=== PATIENT | male | born 1935 | race Caucasian/White ===

== ENCOUNTER 2019-05-23 08:00 | Outpatient (CLI) | payer MEDICARE ==
--- NOTE | 2019-05-23 11:11 | NM ---
EXAM: Nuclear Medicine Cardiac SPECT with EF and wall motion: HISTORY: Chest pain Protocol: Exam was performed using Lexiscan protocol. The patient is injected with30.1 millicuries of technetium 99m sestamibi intravenously for stress ivan ges. The patient is injected with10.2 millicuries of technetium 99 sestamibi intravenously for resting ivan ges. Multiple SPECT images are performed in the short axis, vertical long axis, and horizontal long axis. FINDINGS: Abnormal decreased activity in the inferior wall on stress and rest images evidence for infarct or sc ar. No scan evidence for ischemia. 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 No scan evidence for ischemia.
[2019-05-23] MEDS ORDERED: Regadenoson 0.4 MG/5 ML SYRINGE ONE (14:50)
== END 2019-05-23 08:01 | disposition home or self-care (01) ==
LOC: NM 08:00
PROVIDERS: ATTEND Internal Medicine
DX: R07.9 Chest pain, unspecified (principal)
CPT/HCPCS: 78452; 93017; A9500

== ENCOUNTER 2020-08-09 17:01 | Inpatient (IN) | payer MEDICARE ==
--- NOTE | 2020-08-09 18:01 | RAD ---
PORTABLE CHEST: 08/09/20 HISTORY: COVID positive. Low O2 sat. Heart size is within normal limits. There are atherosclerotic changes of the aorta. The lungs show so me mild chronic change without focal infiltrates. IMPRESSION: No active intrathoracic disease. POS: OFF
[2020-08-09 18:11] LABS: #Lymphocytes 0.6 thou/uL (1.20-3.40); #Monocytes 0.4 thou/uL (0.11-0.59); #Neutrophils 2.2 thou/uL (1.40-6.50); %Eosinophils 0.8 % (0.0-10.0); %Lymphocytes 17.7 % (21.0-51.0); %Neutrophils 68.5 % (42.0-75.0); Hemoglobin 13.9 g/dL (14.0-18.0); Mean Corpuscular HGB CONC 34.2 g/dL (32.0-36.0); Mean Corpuscular Hemoglobin 31.9 pg (27.0-31.0); Mean Corpuscular Volume 93.3 fL (78.0-98.0); Mean Platelet Volume 8.5 fL (7.4-10.4); Platelet Count 113 thou/uL (130-400); Platelet Morphology Comment Appears Decreased; RBC Distribution Width 11.9 % (11.5-14.5); RBC Morphology Normal; Red Blood Cell (RBC) Count 4.35 mill/uL (4.70-6.10); White Blood Cell (WBC) Count 3.1 thou/uL (4.8-10.8)
[2020-08-09 18:16] LABS: ALT (SGPT) 31 U/L (8-55); AST (SGOT) 27 U/L (5-34); Alkaline Phosphatase 89 U/L (40-110); Anion Gap 14 mmol/L (10-20); BUN (Urea Nitrogen) 16 mg/dL (8.4-25.7); Bilirubin, Total 0.6 mg/dL (0.2-1.2); Calc. Creatinine Clearance 0 mL/min (70-130); Calcium 8.7 mg/dL (7.8-10.44); Carbon Dioxide 27 mmol/L (23-31); Chloride 98 mmol/L (98-107); Globulin 2.7 g/dL (2.4-3.5); Glucose 280 mg/dL (83-110); Potassium 4.3 mmol/L (3.5-5.1); Protein, Total 6.7 g/dL (5.8-8.1); Sodium 135 mmol/L (136-145)
[2020-08-09 21:34] LABS: #Lymphocytes 0.5 thou/uL (1.20-3.40); #Monocytes 0.4 thou/uL (0.11-0.59); #Neutrophils 1.9 thou/uL (1.40-6.50); %Eosinophils 1.2 % (0.0-10.0); %Lymphocytes 17.6 % (21.0-51.0); %Monocytes 13.1 % (0.0-10.0); %Neutrophils 68.1 % (42.0-75.0); Mean Corpuscular HGB CONC 34.1 g/dL (32.0-36.0); Mean Corpuscular Hemoglobin 31.8 pg (27.0-31.0); Mean Corpuscular Volume 93.3 fL (78.0-98.0); Mean Platelet Volume 8.5 fL (7.4-10.4); Platelet Count 107 thou/uL (130-400); RBC Distribution Width 11.8 % (11.5-14.5); White Blood Cell (WBC) Count 2.8 thou/uL (4.8-10.8)
--- NOTE | 2020-08-09 21:42 | PDOC.HHP ---
Hospitalist HPI - History of Present Illness Weakness History of Present Illness: This is an 85-year-old male patient with a history of BPH, dementia, Gullian Rosales syndrome with urinary incontinence who was brought in by his on account of generalized case and cough about a week's duration. Patient and his went in to have a Covid test today and he tested positive. His notes for the past week he has been generally weak and unable to move around like he used to. Also coughing however nonproductive. With a positive Covid test and associated symptoms decided to bring him to the ED by EMS for further evaluation. Of note he is hard of caregiver since his diagnosis of care in [place] who re cently became sick with Covid. At presentation Vitals 105/59, pulse 72, respiratory 20, temperature 100, saturation 98% on room air. Labs showed WBC 3.1, hemoglobin 13.9, platelets 113, mild hyponatremia of 135. Glucose was elevated at 280. Attempts were made by ED physician to have him transition to rehab at [facility] however was not successful. Given his general weakness and his not able to take care of him, and also that they do not have any home health support, decision was made to admit him and prepare for transition to rehab if he does not deteriorate any further Hospitalist ROS - Review of Systems Constitutional: reports: fever, weakness, malaise. denies: chills, sweats Respiratory: reports: cough, dry, SOB with excertion. denies: shortness of breath, hemoptysis Gastrointestinal: denies: nausea, vomiting, abdominal pain, diarrhea Genitourinary: denies: dysuria, frequency, incontinence Musculoskeletal: denies: neck pain, shoulder pain, arm pain, back pain Neurological: reports: weakness (Lower limb). denies: numbness, incoordination, change in speech, confusion All other systems reviewed; all pertinent +/- noted in HPI/Subj - Medication Medications: Medications: Currently refer to ambulatory's. Allergies: HMG coinhibitor-statin Hospitalist History - Past Medical History Other Medical History: Dear Rodriguez syndrome, GERD - Past Surgical History Past Surgical History: reports: no pertinent history - Family History Family History: reports: no pertinent history - Social History Smoking Status: Never smoker Alcohol: reports: Occassional Drugs: reports: none Living Situation: With Family - Exam General Appearance: awake alert General - other findings: In no acute distress. Eye: PERRL, anicteric sclera ENT: normocephalic atraumatic Heart: RRR, no murmur, no gallops, no rubs Respiratory: CTAB, no wheezes, no rales, no ronchi Gastrointestinal: soft, non-tender, non-distended (However appears full.), normal bowel sounds Neurological: cranial nerve grossly intact Psychiatric: normal affect, normal behavior, A&O x 3 Hospitalist Results - Labs Result Diagrams: 08/09/20 21:17 08/09/20 21:17 Lab results: WBC 2.8 thou/uL (4.8-10.8) L 08/09/20 21:17 Hgb 13.0 g/dL (14.0-18.0) L 08/09/20 21:17 Hct 38.3 % (42.0-52.0) L 08/09/20 21:17 MCV 93.3 fL (78.0-98.0) 08/09/20 21:17 Plt Count 107 thou/uL (130-400) L 08/09/20 21:17 Neutrophils % 68.1 % (42.0-75.0) 08/09/20 21:17 Sodium 135 mmol/L (136-145) L 08/09/20 17:14 Potassium 4.3 mmol/L (3.5-5.1) 08/09/20 17:14 Chloride 98 mmol/L (98-107) 08/09/20 17:14 Carbon Dioxide 27 mmol/L (23-31) 08/09/20 17:14 BUN 16 mg/dL (8.4-25.7) 08/09/20 17:14 Creatinine 1.05 mg/dL (0.7-1.3) 08/09/20 17:14 Glucose 280 mg/dL (83-110) H 08/09/20 17:14 Calcium 8.7 mg/dL (7.8-10.44) 08/09/20 17:14 Total Bilirubin 0.6 mg/dL (0.2-1.2) 08/09/20 17:14 AST 27 U/L (5-34) 08/09/20 17:14 ALT 31 U/L (8-55) 08/09/20 17:14 Alkaline Phosphatase 89 U/L (40-110) 08/09/20 17:14 Troponin I Less than 0.010 ng/mL (< 0.028) 08/09/20 17:14 B-Natriuretic Peptide 44.1 pg/mL (0-100) 08/09/20 17:14 Serum Total Protein 6.7 g/dL (5.8-8.1) 08/09/20 17:14 Albumin 4.0 g/dL (3.4-4.8) 08/09/20 17:14 Hospitalist H&P A/P - Plan Plan: This is an 85-year-old male patient with a history of PMR syndrome currently incontinent presents with general weakness and cough for a week. Tested positive for Covid today with a mild pancytopenia. Generalized weakness Likely secondary to COVID-19 infection PT and case management Continue monitoring. COVID-19 infection Hold steroids and remdesivir Start zinc and vitamins C/D D-dimer, ferritin, CRP Monitor -Pancytopenia Mild thrombocytopenia Mild anemia Mild leukopenia We will monitor Hyperglycemia No history of diabetes A1c in a.m. VT prophylaxisLovenox
[2020-08-09 21:52] LABS: Anion Gap 12 mmol/L (10-20); BUN (Urea Nitrogen) 14 mg/dL (8.4-25.7); Calc. Creatinine Clearance 0 mL/min (70-130); Calcium 8.1 mg/dL (7.8-10.44); Carbon Dioxide 26 mmol/L (23-31); Chloride 99 mmol/L (98-107); Glucose 285 mg/dL (83-110); Potassium 3.9 mmol/L (3.5-5.1); Sodium 133 mmol/L (136-145)
[2020-08-09 23:17] VITALS: BMI 27.3
[2020-08-10 06:39] LABS: Hemoglobin A1c 8.8 % (4.0-6.0)
[2020-08-10 06:44] LABS: Hemoglobin 13.3 g/dL (14.0-18.0); Mean Corpuscular HGB CONC 33.3 g/dL (32.0-36.0); Mean Corpuscular Hemoglobin 31.3 pg (27.0-31.0); Mean Corpuscular Volume 94.2 fL (78.0-98.0); Mean Platelet Volume 8.6 fL (7.4-10.4); Platelet Count 101 thou/uL (130-400); RBC Distribution Width 11.9 % (11.5-14.5); Red Blood Cell (RBC) Count 4.23 mill/uL (4.70-6.10); White Blood Cell (WBC) Count 2.1 thou/uL (4.8-10.8)
[2020-08-10 06:55] LABS: Anion Gap 9 mmol/L (10-20); BUN (Urea Nitrogen) 14 mg/dL (8.4-25.7); Calc. Creatinine Clearance 98 mL/min (70-130); Calcium 8.3 mg/dL (7.8-10.44); Carbon Dioxide 30 mmol/L (23-31); Chloride 100 mmol/L (98-107); Glucose 213 mg/dL (83-110); Potassium 3.8 mmol/L (3.5-5.1); Sodium 135 mmol/L (136-145)
[2020-08-10] MEDS: Enoxaparin Sodium 40 MG/0.4 ML SYRINGE SC SCH (07:49)
[2020-08-10] MEDS: Cholecalciferol (Vitamin D3) 400 UNITS TAB PO SCH (07:49)
[2020-08-10] MEDS: Ascorbic Acid 500 mg Chewable Tablet PO SCH (07:49)
[2020-08-10] MEDS: Zinc Sulfate 220 MG CAP PO SCH (07:49)
[2020-08-10 08:02] LABS: Band 10 % (5-11); Eosinophils 1 % (0-10); Lymphocytes 28 % (21-51); MDiff Complete? YES; Monocytes 16 % (0-10); Neutrophil 43 % (42-75); Platelet Morphology Comment Appears Decreased; Polychromasia SLIGHT = 2-3 cells (100X) (0-2/hpf); Reactive Lymphocytes 2 % (0-10)
--- NOTE | 2020-08-10 09:32 | PDOC.HOSPP ---
- Subjective Encounter Date: 08/10/20 Encounter Time: 11:00 - Objective Vital Signs & Weight: Vital Signs (12 hours) Temp Pulse Resp BP Pulse Ox 08/10/20 07:27 99.8 F H 72 18 145/71 H 91 L 08/10/20 04:00 97.4 F L 55 L 18 165/82 H 92 L 08/09/20 23:16 95 08/09/20 22:55 99.0 F 56 L 20 149/76 H 95 Weight Weight 213 lb Result Diagrams: 08/10/20 06:12 08/10/20 06:12 Hospitalist ROS - Medication Medications: Active Medications Generic Name Dose Route Start Last Admin Trade Name Freq PRN Reason Stop Dose Admin Ascorbic Acid 1,000 mg 08/10/20 09:00 08/10/20 07:49 Ascorbic Acid 500 Mg Chewable Tablet PO 1,000 mg DAILY FABI Administration Cholecalciferol 400 units 08/10/20 09:00 08/10/20 07:49 Cholecalciferol (Vitamin D3) 400 Units Tab PO 400 units DAILY FABI Administration Enoxaparin Sodium 40 mg 08/10/20 09:00 08/10/20 07:49 Enoxaparin Sodium 40 Mg/0.4 Ml Syringe SC 40 mg 0900 FABI Administration Zinc Sulfate 220 mg 08/10/20 09:00 08/10/20 07:49 Zinc Sulfate 220 Mg Cap PO 220 mg DAILY FABI Administration Hosp A/P - Plan This is an 85-year-old male patient with a history of PMR syndrome currently incontinent presents with general weakness and cough for a week. Tested positive for Covid today with a mild pancytopenia. Generalized weakness Likely secondary to COVID-19 infection PT and case management Continue monitoring. COVID-19 infection Hold steroids and remdesivir Start zinc and vitamins C/D D-dimer, ferritin, CRP Monitor, O2 sats a bit low this AM, but still not needing O2 CXR negative for infiltrate -Pancytopenia Mild thrombocytopenia Mild anemia Mild leukopenia We will monitor Hyperglycemia No history of diabetes A1c 8.8. VT prophylaxisLovenox -Disposition Patient's was under the impression that the patient would stay in the hospital for 10 days until he was cleared of Covid to go to rehab. I will call and discuss with her. At this point patient is being observed for any deterioration. He is getting a little hypoxic down to 91% on room air, however he is not requiring any supplemental oxygen or having any symptoms besides weakness at this time. Patient will need to go to a jail facility if his is unable to care for him at home due to his weakness.
[2020-08-10] MEDS ORDERED: Cepastat Lozenges 1 LOZ PO PRN (13:51)
[2020-08-10] MEDS: Acetaminophen 325 MG TAB PO PRN (20:59)
--- NOTE | 2020-08-11 08:23 | PDOC.HOSPP ---
- Subjective Encounter Date: 08/11/20 Encounter Time: 11:00 Subjective: Patient without any complaints overnight. Still saturating well on room air. - Objective Vital Signs & Weight: Vital Signs (12 hours) Temp Pulse Resp BP Pulse Ox 08/11/20 08:00 98.6 F 75 20 119/63 97 08/10/20 21:29 98.8 F 08/10/20 20:59 100.7 F H Weight Weight 213 lb I&O: 08/10/20 08/11/20 08/12/20 06:59 06:59 06:59 Intake Total 240 Balance 240 Result Diagrams: 08/10/20 06:12 08/10/20 06:12 Hospitalist ROS - Review of Systems Constitutional: denies: fever, chills Respiratory: denies: cough, shortness of breath Cardiovascular: denies: chest pain, palpitations Gastrointestinal: denies: nausea, vomiting, abdominal pain - Medication Medications: Active Medications Generic Name Dose Route Start Last Admin Trade Name Freq PRN Reason Stop Dose Admin Acetaminophen 650 mg 08/10/20 20:14 08/10/20 20:59 Acetaminophen 325 Mg Tab PO 650 mg Q6H PRN Administration Headache/Fever or Pain Ascorbic Acid 1,000 mg 08/10/20 09:00 08/10/20 07:49 Ascorbic Acid 500 Mg Chewable Tablet PO 1,000 mg DAILY FABI Administration Cholecalciferol 400 units 08/10/20 09:00 08/10/20 07:49 Cholecalciferol (Vitamin D3) 400 Units Tab PO 400 units DAILY FABI Administration Enoxaparin Sodium 40 mg 08/10/20 09:00 08/10/20 07:49 Enoxaparin Sodium 40 Mg/0.4 Ml Syringe SC 40 mg 0900 FABI Administration Zinc Sulfate 220 mg 08/10/20 09:00 08/10/20 07:49 Zinc Sulfate 220 Mg Cap PO 220 mg DAILY FABI Administration - Exam General Appearance: NAD, awake alert ENT: moist mucosa Heart: RRR, no murmur, no gallops, no rubs Respiratory: CTAB, no wheezes, no rales, no ronchi Gastrointestinal: soft, non-tender, non-distended, normal bowel sounds Extremities: no edema Psychiatric: normal affect, normal behavior Hosp A/P - Plan This is an 85-year-old male patient with a history of PMR syndrome currently incontinent presents with general weakness and cough for a week. Tested positive for Covid today with a mild pancytopenia. Generalized weakness Likely secondary to COVID-19 infection PT and case management Continue monitoring. COVID-19 infection Hold steroids and remdesivir Start zinc and vitamins C/D D-dimer, ferritin, CRP Monitor, O2 sats a bit low this AM, but still not needing O2 CXR negative for infiltrate -Pancytopenia Mild thrombocytopenia Mild anemia Mild leukopenia We will monitor Hyperglycemia No history of diabetes A1c 8.8. VT prophylaxisLovenox -Disposition Patient's was under the impression that the patient would stay in the hospital for 10 days until he was cleared of Covid to go to rehab. I will call and discuss with her. At this point patient is being observed for any deterioration. Patient is saturating well on O2. Patient will need to go to a senior care facility if his is unable to care for him at home due to his weakness. So far I have been unable to reach patient's . She isn't answering her cell phone and the house phone number we have has been disconnected. I will try calling the daughter.
[2020-08-11] MEDS: Cholecalciferol (Vitamin D3) 400 UNITS TAB PO SCH (08:34)
[2020-08-11] MEDS: Ascorbic Acid 500 mg Chewable Tablet PO SCH (08:34)
[2020-08-11] MEDS: Enoxaparin Sodium 40 MG/0.4 ML SYRINGE SC SCH (08:34)
[2020-08-11] MEDS: Zinc Sulfate 220 MG CAP PO SCH (08:34)
[2020-08-11] MEDS: ALPRAZolam 0.5 MG TAB PO SCH (19:47)
[2020-08-11] MEDS: Terazosin HCl 1 MG CAP PO SCH (19:48)
[2020-08-12] MEDS: Cholecalciferol (Vitamin D3) 400 UNITS TAB PO SCH (08:08)
[2020-08-12] MEDS: Ascorbic Acid 500 mg Chewable Tablet PO SCH (08:08)
[2020-08-12] MEDS: Zinc Sulfate 220 MG CAP PO SCH (08:08)
[2020-08-12] MEDS: Enoxaparin Sodium 40 MG/0.4 ML SYRINGE SC SCH (08:09)
[2020-08-12] MEDS: Loratadine 10 MG TAB PO SCH (08:09)
[2020-08-12] MEDS ORDERED: Cetirizine HCl 10 MG TAB PO SCH (09:00)
[2020-08-12] MEDS ORDERED: Ondansetron ODT 4 MG TAB SL PRN (10:37)
[2020-08-12] MEDS: Acetaminophen 325 MG TAB PO PRN (12:22)
[2020-08-12 15:43] LABS: Bacteria/HPF None Seen HPF (None Seen); Bilirubin Negative (Negative); Blood, Urine Negative (Negative); Clarity Clear (Clear); Glucose, Urine (Dipstick) Normal (Negative); Ketone, Urine 10 mg/dL (Negative); Leukocyte Negative Leu/uL (Negative); Nitrite Negative (Negative); Protein, Urine (Dipstick) 50 mg/dL (Neg-Trace); RBC/HPF 0-3 HPF (0-3); Specific Gravity, Urine 1.033 (1.002-1.036); Squamous Epithelial 0-3 HPF (0-3); WBC/HPF 0-3 HPF (0-3); pH, Urine 5.5 (5.0-9.0)
[2020-08-12 15:45] LABS: Urine Culture Reflex No No
--- NOTE | 2020-08-12 15:50 | PDOC.HOSPP ---
- Subjective Encounter Date: 08/12/20 - Objective Vital Signs & Weight: Vital Signs (12 hours) Temp Pulse Resp BP Pulse Ox 08/12/20 15:29 97.9 F 08/12/20 12:22 100.6 F H 08/12/20 11:17 100.6 F H 70 20 134/72 97 08/12/20 08:09 97 08/12/20 07:35 99.8 F H 73 20 124/71 97 08/12/20 04:00 97.8 F 78 18 137/76 95 Weight Weight 213 lb I&O: 08/11/20 08/12/20 08/13/20 06:59 06:59 06:59 Intake Total 240 360 Balance 240 360 Result Diagrams: 08/10/20 06:12 08/10/20 06:12 Hospitalist ROS - Review of Systems Constitutional: denies: fever Eyes: denies: pain ENT: denies: ear pain Respiratory: denies: cough Cardiovascular: denies: chest pain Gastrointestinal: reports: vomiting Musculoskeletal: denies: neck pain Neurological: denies: weakness All other systems reviewed; all pertinent +/- noted in HPI/Subj - Medication Medications: Active Medications Generic Name Dose Route Start Last Admin Trade Name Freq PRN Reason Stop Dose Admin Acetaminophen 650 mg 08/10/20 20:14 08/12/20 12:22 Acetaminophen 325 Mg Tab PO 650 mg Q6H PRN Administration Headache/Fever or Pain Alprazolam 0.5 mg 08/11/20 21:00 08/11/20 19:47 Alprazolam 0.5 Mg Tab PO 0.5 mg QPM FABI Administration Ascorbic Acid 1,000 mg 08/10/20 09:00 08/12/20 08:08 Ascorbic Acid 500 Mg Chewable Tablet PO 1,000 mg DAILY FABI Administration Cholecalciferol 400 units 08/10/20 09:00 08/12/20 08:08 Cholecalciferol (Vitamin D3) 400 Units Tab PO 400 units DAILY FABI Administration Enoxaparin Sodium 40 mg 08/10/20 09:00 08/12/20 08:09 Enoxaparin Sodium 40 Mg/0.4 Ml Syringe SC 40 mg 0900 FABI Administration Loratadine 10 mg 08/12/20 09:00 08/12/20 08:09 Loratadine 10 Mg Tab PO 10 mg DAILY FABI Administration Ondansetron HCl 4 mg 08/12/20 10:37 08/12/20 12:22 Ondansetron Odt 4 Mg Tab SL 4 mg Q6H PRN Administration Nausea/Vomiting Pantoprazole Sodium 40 mg 08/12/20 09:00 08/12/20 08:09 Pantoprazole 40 Mg Tab PO 40 mg DAILY FABI Administration Sertraline HCl 100 mg 08/12/20 09:00 08/12/20 08:09 Sertraline Hcl 100 Mg Tab PO 100 mg DAILY FABI Administration Terazosin HCl 1 mg 08/11/20 21:00 08/11/20 19:48 Terazosin Hcl 1 Mg Cap PO 1 mg QPM FABI Administration Zinc Sulfate 220 mg 08/10/20 09:00 08/12/20 08:08 Zinc Sulfate 220 Mg Cap PO 220 mg DAILY FABI Administration - Exam General Appearance: awake alert Eye: anicteric sclera ENT: normocephalic atraumatic Neck: supple Heart: no murmur Respiratory: no wheezes Gastrointestinal: soft Extremities: no cyanosis Skin: normal turgor Neurological: cranial nerve grossly intact Musculoskeletal: normal tone Psychiatric: normal affect Hosp A/P - Plan This is an 85-year-old male patient with a history of PMR syndrome currently incontinent presents with general weakness and cough for a week. Tested positive for Covid today with a mild pancytopenia. Generalized weakness with functional Decline secondary to COVID-19 infection f/u PT and case management Continue monitoring. COVID-19 infection Currenlty on RA chest x ray neg Not a candidate of steroids and remdesivir D-dimer, ferritin, CRP Monitor, O2 sats Having temp , ordered UA to r/o UTI Pancytopenia Mild thrombocytopenia Mild anemia Mild leukopenia Possible due to Covid 19 Infection Continue to monitor labs Hyperglycemia No history of diabetes A1c 8.8. Added sliding scale VT prophylaxisLovenox Discussed with and daughter on phone updated pt condition Possible dc next 24 hours if clinically stable
[2020-08-12] MEDS ORDERED: Dextrose 5% in Water 1,000 ML IV PRN (15:51)
[2020-08-12] MEDS ORDERED: Dextrose 50% Abboject 50 ML SYRINGE SLOW IVP PRN (15:51)
[2020-08-12] MEDS: Insulin Regular 300 UNITS/3 ML VIAL SC PRN ×2 (18:31→20:55)
[2020-08-12] MEDS: ALPRAZolam 0.5 MG TAB PO SCH (20:54)
[2020-08-12] MEDS: Terazosin HCl 1 MG CAP PO SCH (20:54)
[2020-08-13 07:17] LABS: D-Dimer Test 0.33 *mcg/mL (0.27-0.43)
[2020-08-13 07:20] LABS: #Lymphocytes 0.5 thou/uL (1.20-3.40); #Monocytes 0.4 thou/uL (0.11-0.59); #Neutrophils 1.7 thou/uL (1.40-6.50); %Eosinophils 1.1 % (0.0-10.0); %Lymphocytes 17.9 % (21.0-51.0); %Monocytes 13.9 % (0.0-10.0); %Neutrophils 67.2 % (42.0-75.0); Hemoglobin 13.4 g/dL (14.0-18.0); Mean Corpuscular HGB CONC 33.5 g/dL (32.0-36.0); Mean Corpuscular Hemoglobin 31.3 pg (27.0-31.0); Mean Corpuscular Volume 93.3 fL (78.0-98.0); Mean Platelet Volume 8.7 fL (7.4-10.4); Platelet Count 118 thou/uL (130-400); RBC Distribution Width 11.8 % (11.5-14.5); Red Blood Cell (RBC) Count 4.29 mill/uL (4.70-6.10); White Blood Cell (WBC) Count 2.6 thou/uL (4.8-10.8)
[2020-08-13 07:22] LABS: Anion Gap 17 mmol/L (10-20); BUN (Urea Nitrogen) 15 mg/dL (8.4-25.7); CRP (Inflammatory) 2.64 mg/dL (= or < 0.5); Calc. Creatinine Clearance 93 mL/min (70-130); Calcium 8.5 mg/dL (7.8-10.44); Carbon Dioxide 23 mmol/L (23-31); Chloride 100 mmol/L (98-107); Glucose 147 mg/dL (83-110); Potassium 4.5 mmol/L (3.5-5.1); Sodium 135 mmol/L (136-145)
[2020-08-13] MEDS: Ascorbic Acid 500 mg Chewable Tablet PO SCH (08:21)
[2020-08-13] MEDS: Loratadine 10 MG TAB PO SCH (08:21)
[2020-08-13] MEDS: Enoxaparin Sodium 40 MG/0.4 ML SYRINGE SC SCH (08:21)
[2020-08-13] MEDS: Cholecalciferol (Vitamin D3) 400 UNITS TAB PO SCH (08:21)
[2020-08-13] MEDS: Zinc Sulfate 220 MG CAP PO SCH (08:23)
[2020-08-13] MEDS: Acetaminophen 325 MG TAB PO PRN ×2 (08:23→19:35)
--- NOTE | 2020-08-13 08:46 | PDOC.HOSPP ---
- Subjective Encounter Date: 08/13/20 Encounter Time: 10:40 Subjective: Patient without complaints. No events overnight. Awaiting placement. - Objective Vital Signs & Weight: Vital Signs (12 hours) Temp Pulse Resp BP Pulse Ox 08/13/20 08:23 100.1 F H 08/13/20 07:25 100.1 F H 82 18 140/86 94 L 08/13/20 04:00 96.5 F L 68 18 114/55 L 96 Weight Weight 213 lb I&O: 08/12/20 08/13/20 08/14/20 06:59 06:59 06:59 Intake Total 360 360 Balance 360 360 Result Diagrams: 08/13/20 06:35 08/13/20 06:35 Additional Labs: Accuchecks 08/13/20 08/12/20 04:30 16:32 POC Glucose 124 H 203 H Hospitalist ROS - Review of Systems Constitutional: denies: fever, chills Respiratory: denies: cough, shortness of breath Cardiovascular: denies: chest pain, palpitations Gastrointestinal: denies: nausea, vomiting, abdominal pain - Medication Medications: Active Medications Generic Name Dose Route Start Last Admin Trade Name Freq PRN Reason Stop Dose Admin Acetaminophen 650 mg 08/10/20 20:14 08/13/20 08:23 Acetaminophen 325 Mg Tab PO 650 mg Q6H PRN Administration Headache/Fever or Pain Alprazolam 0.5 mg 08/11/20 21:00 08/12/20 20:54 Alprazolam 0.5 Mg Tab PO 0.5 mg QPM FABI Administration Ascorbic Acid 1,000 mg 08/10/20 09:00 08/13/20 08:21 Ascorbic Acid 500 Mg Chewable Tablet PO 1,000 mg DAILY FABI Administration Cholecalciferol 400 units 08/10/20 09:00 08/13/20 08:21 Cholecalciferol (Vitamin D3) 400 Units Tab PO 400 units DAILY FABI Administration Enoxaparin Sodium 40 mg 08/10/20 09:00 08/13/20 08:21 Enoxaparin Sodium 40 Mg/0.4 Ml Syringe SC 40 mg 0900 FABI Administration Insulin Human Regular 0 units 08/12/20 15:51 08/12/20 20:55 Insulin Regular 300 Units/3 Ml Vial SC 2 unit .MODERATE SLIDING SC PRN Administration Moderate Correctional Scale Loratadine 10 mg 08/12/20 09:00 08/13/20 08:21 Loratadine 10 Mg Tab PO 10 mg DAILY FABI Administration Ondansetron HCl 4 mg 08/12/20 10:37 08/12/20 12:22 Ondansetron Odt 4 Mg Tab SL 4 mg Q6H PRN Administration Nausea/Vomiting Pantoprazole Sodium 40 mg 08/12/20 09:00 08/13/20 08:22 Pantoprazole 40 Mg Tab PO 40 mg DAILY FABI Administration Sertraline HCl 100 mg 08/12/20 09:00 08/13/20 08:22 Sertraline Hcl 100 Mg Tab PO 100 mg DAILY FABI Administration Terazosin HCl 1 mg 08/11/20 21:00 08/12/20 20:54 Terazosin Hcl 1 Mg Cap PO 1 mg QPM FABI Administration Zinc Sulfate 220 mg 08/10/20 09:00 08/13/20 08:23 Zinc Sulfate 220 Mg Cap PO 220 mg DAILY FABI Administration - Exam General Appearance: NAD, awake alert ENT: moist mucosa Heart: RRR, no murmur, no gallops, no rubs Respiratory: CTAB, no wheezes, no rales, no ronchi Gastrointestinal: soft, non-tender, non-distended, normal bowel sounds Psychiatric: normal affect, normal behavior Hosp A/P - Plan This is an 85-year-old male patient with a history of PMR syndrome currently incontinent presents with general weakness and cough for a week. Tested positive for Covid on admission with a mild pancytopenia. Generalized weakness Likely secondary to COVID-19 infection PT and case management Continue monitoring. Still requiring max assist from physical therapy. COVID-19 infection Hold steroids and remdesivir Start zinc and vitamins C/D D-dimer, ferritin, CRP Monitor, O2 sats a bit low this AM, but still not needing O2 CXR negative for infiltrate -Pancytopenia Mild thrombocytopenia Mild anemia Mild leukopenia We will monitor Hyperglycemia No history of diabetes A1c 8.8. VT prophylaxisLovenox -Disposition Patient's was under the impression that the patient would stay in the h ospital for 10 days until he was cleared of Covid to go to rehab. At this point patient is being observed for any deterioration. Patient is saturating well on O2. Patient will need to go to a [facility] facility if his is unable to care for him at home due to his weakness. Case management was able to get family to agree to swing bed at [facility]
[2020-08-13] MEDS: ALPRAZolam 0.5 MG TAB PO SCH (20:49)
[2020-08-13] MEDS: Terazosin HCl 1 MG CAP PO SCH (20:49)
[2020-08-14] MEDS: Ascorbic Acid 500 mg Chewable Tablet PO SCH (07:50)
[2020-08-14] MEDS: Cholecalciferol (Vitamin D3) 400 UNITS TAB PO SCH (07:56)
[2020-08-14] MEDS: Zinc Sulfate 220 MG CAP PO SCH (07:57)
[2020-08-14] MEDS: Enoxaparin Sodium 40 MG/0.4 ML SYRINGE SC SCH (07:58)
[2020-08-14] MEDS: Loratadine 10 MG TAB PO SCH (07:58)
[2020-08-14] MEDS: Acetaminophen 325 MG TAB PO PRN (08:06)
--- NOTE | 2020-08-14 08:21 | PDOC.HOSPP ---
- Subjective Encounter Date: 08/14/20 Encounter Time: 11:15 Subjective: Patient without complaints. No events overnight. Patient has been accepted to [facility] - Objective Vital Signs & Weight: Vital Signs (12 hours) Temp Pulse Resp BP Pulse Ox 08/14/20 08:06 100 F H 08/14/20 04:00 100.7 F H 85 18 141/67 H 95 08/14/20 00:00 97.7 F 70 20 133/71 97 Weight Weight 213 lb I&O: 08/13/20 08/14/20 08/15/20 06:59 06:59 06:59 Intake Total 360 Balance 360 Result Diagrams: 08/13/20 06:35 08/13/20 06:35 Additional Labs: Accuchecks 08/14/20 08/13/20 08/13/20 04:53 20:43 15:45 POC Glucose 140 H 161 H 160 H 08/13/20 08/12/20 11:12 20:06 POC Glucose 151 H 167 H Hospitalist ROS - Review of Systems Constitutional: denies: fever, chills Respiratory: denies: cough, shortness of breath Cardiovascular: denies: chest pain, palpitations Gastrointestinal: denies: nausea, vomiting, abdominal pain - Medication Medications: Active Medications Generic Name Dose Route Start Last Admin Trade Name Freq PRN Reason Stop Dose Admin Acetaminophen 650 mg 08/10/20 20:14 08/14/20 08:06 Acetaminophen 325 Mg Tab PO 650 mg Q6H PRN Administration Headache/Fever or Pain Alprazolam 0.5 mg 08/11/20 21:00 08/13/20 20:49 Alprazolam 0.5 Mg Tab PO 0.5 mg QPM FABI Administration Ascorbic Acid 1,000 mg 08/10/20 09:00 08/14/20 07:50 Ascorbic Acid 500 Mg Chewable Tablet PO 1,000 mg DAILY FABI Administration Cholecalciferol 400 units 08/10/20 09:00 08/14/20 07:56 Cholecalciferol (Vitamin D3) 400 Units Tab PO 400 units DAILY FABI Administration Enoxaparin Sodium 40 mg 08/10/20 09:00 08/14/20 07:58 Enoxaparin Sodium 40 Mg/0.4 Ml Syringe SC 40 mg 0900 FABI Administration Insulin Human Regular 0 units 08/12/20 15:51 08/12/20 20:55 Insulin Regular 300 Units/3 Ml Vial SC 2 unit .MODERATE SLIDING SC PRN Administration Moderate Correctional Scale Loratadine 10 mg 08/12/20 09:00 08/14/20 07:58 Loratadine 10 Mg Tab PO 10 mg DAILY FABI Administration Ondansetron HCl 4 mg 08/12/20 10:37 08/12/20 12:22 Ondansetron Odt 4 Mg Tab SL 4 mg Q6H PRN Administration Nausea/Vomiting Pantoprazole Sodium 40 mg 08/12/20 09:00 08/14/20 07:57 Pantoprazole 40 Mg Tab PO 40 mg DAILY FABI Administration Sertraline HCl 100 mg 08/12/20 09:00 08/14/20 07:56 Sertraline Hcl 100 Mg Tab PO 100 mg DAILY FABI Administration Terazosin HCl 1 mg 08/11/20 21:00 08/13/20 20:49 Terazosin Hcl 1 Mg Cap PO 1 mg QPM FABI Administration Zinc Sulfate 220 mg 08/10/20 09:00 08/14/20 07:57 Zinc Sulfate 220 Mg Cap PO 220 mg DAILY FABI Administration Hospitalist Exam Vitals: Vital Signs (12 hours) Temp Pulse Resp BP Pulse Ox 08/14/20 08:06 100 F H 08/14/20 04:00 100.7 F H 85 18 141/67 H 95 08/14/20 00:00 97.7 F 70 20 133/71 97 Weight Weight 213 lb General Appearance: NAD, awake alert ENT: moist mucosa Heart: RRR, no murmur, no gallops, no rubs Respiratory: CTAB, no wheezes, no rales, no ronchi Gastrointestinal: soft, non-tender, non-distended, normal bowel sounds Psychiatric: normal affect, normal behavior Hosp A/P - Plan This is an 85-year-old male patient with a history of PMR syndrome currently incontinent presents with general weakness and cough for a week. Tested positive for Covid on admission with a mild pancytopenia. Generalized weakness Likely secondary to COVID-19 infection PT and case management Continue monitoring. Still requiring max assist from physical therapy. COVID-19 infection Hold steroids and remdesivir Start zinc and vitamins C/D D-dimer, ferritin, CRP Monitor, O2 sats a bit low this AM, but still not needing O2 CXR negative for infiltrate -Pancytopenia Mild thrombocytopenia Mild anemia Mild leukopenia We will monitor Hyperglycemia No history of diabetes A1c 8.8. VT prophylaxisLovenox -Disposition Patient accepted to [facility] swing bed. Will discharge today.
--- NOTE | 2020-08-14 14:57 | PDOC.DS.DS ---
Provider Date of Admission: 08/10/20 13:50 Date of Discharge: 08/14/20 Admitting Provider: Bo Franks MD Consultations: None Primary Care Physician: Santiago Borges MD Course Hospital Course: This is an 85-year-old male patient with a history of PMR syndrome currently incontinent presents with general weakness and cough for a week. Tested positive for Covid on admission with a mild pancytopenia. He has been asymptomatic during hospital hospitalization except for generalized weakness. He has been working with physical therapy. Case management discussed patient's care with his and daughter. They stated that they could not take care of him at home as he required such a large amount of assistance just to get up. Eventually they decided to send him to [facility]. Lab Results: 08/13/20 06:35 08/13/20 06:35 Abnormal Lab Results - Last 48 hrs 08/12/20 15:11: Urine Protein 50 A, Urine Ketones 10 A, Urine Urobilinogen 4.0 A 08/13/20 06:35: Sodium 135 L, C-Reactive Protein 2.64 H 08/13/20 06:35: WBC 2.6 L, RBC 4.29 L, Hgb 13.4 L, Hct 40.0 L, MCH 31.3 H, Plt Count 118 L, Lymphocytes % 17.9 L, Monocytes % 13.9 H, Lymphocytes # 0.5 L Vitals: Vital Signs (12 hours) Temp Pulse Resp BP Pulse Ox 08/14/20 11:52 97.9 F 75 16 116/55 L 97 08/14/20 08:36 99.3 F 08/14/20 08:06 100 F H 08/14/20 08:00 100.0 F H 84 18 132/69 95 08/14/20 04:00 100.7 F H 85 18 141/67 H 95 Weight Weight 213 lb Physical Exam: The patient was seen and examined on the day of discharge. 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 Plan of Treatment: Patient will be transferred to swing bed for physical therapy until he is strong enough to return home. Patient does not have any evidence of Covid pneumonia or other complications of his infection and does not require steroids or remdesivir at this time. Time Spent in discharge related activities (mins): 32 Plan Home Medications: Medication Instructions Recorded Confirmed Type ALPRAZolam [Alprazolam] 0.5 mg PO QPM 08/11/20 08/11/20 History Cetirizine HCl [Zyrtec] 10 mg PO DAILY 08/11/20 08/11/20 History Pantoprazole [Protonix] 40 mg PO DAILY 08/11/20 08/11/20 History Sertraline HCl 100 mg PO DAILY 08/11/20 08/11/20 History Terazosin HCl 1 mg PO QPM 08/11/20 08/11/20 History Acetaminophen [Tylenol Regular 650 mg PO Q6H PRN tab 08/13/20 Rx Strength] Ascorbic Acid [Vitamin C] 1,000 mg PO DAILY tab 08/13/20 Rx Cepastat Lozenges 1 jyoti PO Q2H PRN jyoti 08/13/20 Rx Cholecalciferol (Vitamin D3) 400 units PO DAILY tab 08/13/20 Rx [Vitamin D3] Enoxaparin Sodium [Lovenox] 40 mg SC 0900 syringe 08/13/20 Rx Ondansetron [Zofran ODT] 4 mg SL Q6H PRN tab 08/13/20 Rx Zinc Sulfate 220 mg PO DAILY cap 08/13/20 Rx Allergies: [id number] Reductase Inhibitor Allergy (Severe, Verified 10/05/14 22:40) muscle weakness Activity:: Activity as Tolerated Nourishment:: Diabetic Diet, Heart Healthy Diet Therapies:: Occupational Therapy, Physical Therapy Equipment/Supplies:: Not Applicable IV Therapy:: Not Applicable Referrals: Santiago Borges MD [Primary Care Provider] - Disposition: OTHER HOSPITAL INPT Quality CORE MEASURES:: N/A
[2020-08-14 15:11] VITALS: BP 135/77; TEMP 99.3
== END 2020-08-14 14:59 | disposition swing bed (61) | DRG 178 ==
LOC: ERS 17:01 → T4-B 21:25 → OBSVTOIN 08-10 13:50
PROVIDERS: ADMIT Student in an Organized Health Care Education/Training Program; ATTEND Emergency Medicine
PROC: 8E0ZXY6 Isolation (ICD-10-PCS; principal; 2020-08-10)
DX: U07.1 COVID-19 (principal); G61.0 Guillain-Barre syndrome; E87.1 Hypo-osmolality and hyponatremia; D61.818 Other pancytopenia; F03.90 Unspecified dementia, unspecified severity, without behavioral disturbance, psychotic disturbance, mood disturbance, and anxiety; N40.1 Benign prostatic hyperplasia with lower urinary tract symptoms; R32 Unspecified urinary incontinence; K21.9 Gastro-esophageal reflux disease without esophagitis; Z88.8 Allergy status to other drugs, medicaments and biological substances; Z98.84 Bariatric surgery status; Z90.89 Acquired absence of other organs; E11.65 Type 2 diabetes mellitus with hyperglycemia
CPT/HCPCS: 36415; 36416; 71045; 80048; 80053; 81001; 82728; 83036; 83880; 84484; 85025; 85379; 85384; 86140; 93005; 96372; G0378; J1650; J1815; Q0162

== ENCOUNTER 2020-11-08 13:02 | Inpatient (IN) | payer MEDICARE ==
[2020-11-08 13:53] LABS: #Eosinphils 0.1 thou/uL (0.0-0.7); #Lymphocytes 1.1 thou/uL (1.20-3.40); #Monocytes 0.7 thou/uL (0.11-0.59); #Neutrophils 7.8 thou/uL (1.40-6.50); %Basophils 0.1 % (0.0-1.0); %Eosinophils 1.5 % (0.0-10.0); %Lymphocytes 11.3 % (21.0-51.0); %Monocytes 7.4 % (0.0-10.0); %Neutrophils 79.7 % (42.0-75.0); Hemoglobin 12.8 g/dL (14.0-18.0); Mean Corpuscular HGB CONC 32.3 g/dL (32.0-36.0); Mean Corpuscular Hemoglobin 30.6 pg (27.0-31.0); Mean Corpuscular Volume 94.7 fL (78.0-98.0); Mean Platelet Volume 7.9 fL (7.4-10.4); Platelet Count 251 thou/uL (130-400); RBC Distribution Width 12.3 % (11.5-14.5); Red Blood Cell (RBC) Count 4.17 mill/uL (4.70-6.10); White Blood Cell (WBC) Count 9.7 thou/uL (4.8-10.8)
[2020-11-08 13:59] LABS: PTT 27.5 sec (22.9-36.1); Prothrombin Time 13.4 sec (12.0-14.7)
[2020-11-08 14:08] LABS: ALT (SGPT) 10 U/L (8-55); AST (SGOT) 11 U/L (5-34); Albumin 3.5 g/dL (3.4-4.8); Alkaline Phosphatase 94 U/L (40-110); Anion Gap 11 mmol/L (10-20); BUN (Urea Nitrogen) 12 mg/dL (8.4-25.7); Bilirubin, Total 0.3 mg/dL (0.2-1.2); Calc. Creatinine Clearance 0 mL/min (70-130); Calcium 8.8 mg/dL (7.8-10.44); Carbon Dioxide 30 mmol/L (23-31); Chloride 104 mmol/L (98-107); Globulin 2.7 g/dL (2.4-3.5); Glucose 142 mg/dL (83-110); Potassium 4.2 mmol/L (3.5-5.1); Protein, Total 6.2 g/dL (5.8-8.1); Sodium 141 mmol/L (136-145)
[2020-11-08] MEDS ORDERED: Enoxaparin Sodium 100 MG/ML SYRINGE ONE (14:45)
[2020-11-08] MEDS ORDERED: Metoprolol Tartrate 5 MG/5 ML VIAL ONE ×2 (14:45→16:36)
[2020-11-08] MEDS ORDERED: Ondansetron PF 4 MG/2 ML Vial IVP PRN (15:13)
[2020-11-08] MEDS ORDERED: Acetaminophen 325 MG TAB PO PRN (15:13)
[2020-11-08] MEDS ORDERED: Furosemide 20 MG/2 ML VIAL ONE (15:28)
[2020-11-08 17:04] LABS: Troponin I 0.016 ng/mL (< 0.028)
[2020-11-08 20:12] LABS: Troponin I 0.016 ng/mL (< 0.028)
[2020-11-08] MEDS: Apixaban 5 MG TAB PO SCH (21:18)
[2020-11-08] MEDS: Metoprolol Tartrate 25 MG TAB PO SCH (21:18)
[2020-11-08 22:05] VITALS: BMI 24.7
[2020-11-08 22:15] LABS: SARS-CoV-2 PCR by NAA Not Detected (NotDetected)
[2020-11-09 04:29] LABS: #Eosinphils 0.2 thou/uL (0.0-0.7); #Lymphocytes 1.6 thou/uL (1.20-3.40); #Monocytes 0.8 thou/uL (0.11-0.59); #Neutrophils 4.5 thou/uL (1.40-6.50); %Basophils 0.2 % (0.0-1.0); %Eosinophils 3.2 % (0.0-10.0); %Lymphocytes 21.9 % (21.0-51.0); %Monocytes 11.4 % (0.0-10.0); %Neutrophils 63.3 % (42.0-75.0); Hemoglobin 11.9 g/dL (14.0-18.0); Mean Corpuscular HGB CONC 32.5 g/dL (32.0-36.0); Mean Corpuscular Hemoglobin 30.8 pg (27.0-31.0); Mean Corpuscular Volume 94.6 fL (78.0-98.0); Mean Platelet Volume 7.8 fL (7.4-10.4); Platelet Count 227 thou/uL (130-400); RBC Distribution Width 12.4 % (11.5-14.5); Red Blood Cell (RBC) Count 3.87 mill/uL (4.70-6.10); White Blood Cell (WBC) Count 7.1 thou/uL (4.8-10.8)
[2020-11-09 05:31] LABS: Anion Gap 13 mmol/L (10-20); BUN (Urea Nitrogen) 13 mg/dL (8.4-25.7); Calc. Creatinine Clearance 96 mL/min (70-130); Calcium 8.8 mg/dL (7.8-10.44); Carbon Dioxide 28 mmol/L (23-31); Chloride 103 mmol/L (98-107); Glucose 115 mg/dL (83-110); Potassium 3.8 mmol/L (3.5-5.1); Sodium 140 mmol/L (136-145)
[2020-11-09] MEDS: Apixaban 5 MG TAB PO SCH ×2 (08:07→20:17)
[2020-11-09] MEDS: Metoprolol Tartrate 25 MG TAB PO SCH (08:07)
[2020-11-09] MEDS ORDERED: Metoprolol Tartrate 25 MG TAB PO SCH (21:00)
[2020-11-10] MEDS: Apixaban 5 MG TAB PO SCH (08:19)
[2020-11-10 15:28] VITALS: BP 123/84; TEMP 97.9
== END 2020-11-10 15:37 | disposition home or self-care (01) | DRG 309 ==
LOC: ERS 13:02 → ERHOLD 14:47 → 2NO 20:25
PROVIDERS: ADMIT Internal Medicine; ATTEND Internal Medicine
DX: I48.19 Other persistent atrial fibrillation (principal); G61.0 Guillain-Barre syndrome; R41.3 Other amnesia; Z20.822 Contact with and (suspected) exposure to COVID-19; Z88.8 Allergy status to other drugs, medicaments and biological substances; Z79.84 Long term (current) use of oral hypoglycemic drugs; Z79.899 Other long term (current) drug therapy
CPT/HCPCS: 36415; 71045; 80048; 80053; 83880; 84443; 84484; 85025; 85610; 85730; 87635; 93005; 93306; 96372; 96374; 96375; 96376; J1650; J1940; U0003; U0005

== ENCOUNTER 2021-01-21 09:08 | Emergency (ER) | payer MEDICARE | END 2021-01-21 11:09 | disposition home or self-care (01) | LOC: ERS 09:08 | DX: S09.90XA Unspecified injury of head, initial encounter (principal); N40.0 Benign prostatic hyperplasia without lower urinary tract symptoms; R29.701 NIHSS score 1; Z79.01 Long term (current) use of anticoagulants | CPT/HCPCS: 70450 ==

== ENCOUNTER 2021-08-11 12:54 | Emergency (ER) | payer MEDICARE ==
[2021-08-11 13:31] LABS: #Eosinphils 0.1 thou/uL (0.0-0.7); #Lymphocytes 0.8 thou/uL (1.20-3.40); #Monocytes 0.6 thou/uL (0.11-0.59); #Neutrophils 3.3 thou/uL (1.40-6.50); %Basophils 0.3 % (0.0-1.0); %Eosinophils 1.6 % (0.0-10.0); %Lymphocytes 17.4 % (21.0-51.0); %Monocytes 11.8 % (0.0-10.0); %Neutrophils 68.9 % (42.0-75.0); Mean Corpuscular HGB CONC 32.9 g/dL (32.0-36.0); Mean Corpuscular Hemoglobin 31.6 pg (27.0-31.0); Mean Corpuscular Volume 96.1 fL (78.0-98.0); Mean Platelet Volume 7.5 fL (7.4-10.4); Platelet Count 199 thou/uL (130-400); RBC Distribution Width 13.1 % (11.5-14.5); Red Blood Cell (RBC) Count 3.15 mill/uL (4.70-6.10); White Blood Cell (WBC) Count 4.7 thou/uL (4.8-10.8)
[2021-08-11 13:41] LABS: INR-International Normal Ratio 1.5; PTT 35.2 sec (22.9-36.1); Prothrombin Time 18.4 sec (12.0-14.7)
[2021-08-11 14:02] LABS: ALT (SGPT) 18 U/L (8-55); AST (SGOT) 20 U/L (5-34); Albumin 2.5 g/dL (3.4-4.8); Alkaline Phosphatase 119 U/L (40-110); Anion Gap 9 mmol/L (10-20); BUN (Urea Nitrogen) 13 mg/dL (8.4-25.7); Bilirubin, Total 1.1 mg/dL (0.2-1.2); Calc. Creatinine Clearance 0 mL/min (70-130); Calcium 7.8 mg/dL (7.8-10.44); Carbon Dioxide 31 mmol/L (23-31); Chloride 104 mmol/L (98-107); Globulin 2.3 g/dL (2.4-3.5); Glucose 101 mg/dL (83-110); Potassium 3.8 mmol/L (3.5-5.1); Protein, Total 4.8 g/dL (5.8-8.1); Sodium 140 mmol/L (136-145)
== END 2021-08-11 15:43 ==
LOC: ERS 12:54
DX: S20.219A Contusion of unspecified front wall of thorax, initial encounter (principal); S30.1XXA Contusion of abdominal wall, initial encounter; S50.12XA Contusion of left forearm, initial encounter; I48.91 Unspecified atrial fibrillation; E11.9 Type 2 diabetes mellitus without complications; K21.9 Gastro-esophageal reflux disease without esophagitis; G61.0 Guillain-Barre syndrome; X58.XXXA Exposure to other specified factors, initial encounter; Z86.718 Personal history of other venous thrombosis and embolism; Z79.01 Long term (current) use of anticoagulants; Z79.84 Long term (current) use of oral hypoglycemic drugs; Z79.899 Other long term (current) drug therapy
CPT/HCPCS: 70450; 80053; 85025; 85610; 85730; 93005

== ENCOUNTER 2022-03-24 16:29 | Inpatient (IN) | payer MEDICARE ==
[~2022-03-24 16:29] MED LIST: Iopamidol-370 76% 500 ML 1 ML ONE
[2022-03-24 17:33] LABS: #Eosinphils 0.1 thou/uL (0.0-0.7); #Lymphocytes 1.2 thou/uL (1.20-3.40); #Monocytes 0.8 thou/uL (0.11-0.59); #Neutrophils 7.3 thou/uL (1.40-6.50); %Basophils 0.2 % (0.0-1.0); %Eosinophils 0.6 % (0.0-10.0); %Lymphocytes 13.2 % (21.0-51.0); %Monocytes 8.8 % (0.0-10.0); %Neutrophils 77.3 % (42.0-75.0); Hemoglobin 9.4 g/dL (14.0-18.0); Mean Corpuscular HGB CONC 34.1 g/dL (32.0-36.0); Mean Corpuscular Hemoglobin 32.9 pg (27.0-31.0); Mean Corpuscular Volume 96.5 fL (78.0-98.0); Mean Platelet Volume 8.5 fL (7.4-10.4); Platelet Count 236 thou/uL (130-400); RBC Distribution Width 14.4 % (11.5-14.5); Red Blood Cell (RBC) Count 2.87 mill/uL (4.70-6.10); White Blood Cell (WBC) Count 9.5 thou/uL (4.8-10.8)
[2022-03-24 17:46] LABS: INR-International Normal Ratio 1.3; PTT 31.6 sec (22.9-36.1); Prothrombin Time 16.3 sec (12.0-14.7)
[2022-03-24 17:53] LABS: ALT (SGPT) 10 U/L (8-55); AST (SGOT) 16 U/L (5-34); Albumin 2.2 g/dL (3.4-4.8); Alkaline Phosphatase 97 U/L (40-110); Anion Gap 14 mmol/L (10-20); BUN (Urea Nitrogen) 15 mg/dL (8.4-25.7); Bilirubin, Total 0.9 mg/dL (0.2-1.2); CK (CPK) 84 U/L (30-200); Calc. Creatinine Clearance 0 mL/min (70-130); Calcium 7.8 mg/dL (7.8-10.44); Carbon Dioxide 27 mmol/L (23-31); Chloride 106 mmol/L (98-107); Estimated GFR 94; Globulin 2.4 g/dL (2.4-3.5); Glucose 106 mg/dL (83-110); Lipase 5 U/L (8-78); Protein, Total 4.6 g/dL (5.8-8.1); Sodium 144 mmol/L (136-145)
[2022-03-24 18:01] LABS: Potassium 2.9 mmol/L (3.5-5.1)
[2022-03-24] MEDS ORDERED: Potassium Chloride 20 MEQ TAB ONE (18:21)
[2022-03-24 19:11] LABS: Magnesium 1.5 mg/dL (1.6-2.6)
[2022-03-24] MEDS ORDERED: Magnesium 2 GM/50 ML BAG (IN WATER) ONE (19:43)
[2022-03-24 19:50] LABS: Bacteria/HPF 4+ HPF (None Seen); Bilirubin Negative (Negative); Blood, Urine 2+ (Negative); Calcium Oxalate Crystals 1+ HPF (None Seen); Clarity Extra Turbid (Clear); Glucose, Urine (Dipstick) Normal (Negative); Ketone, Urine Negative (Negative); Leukocyte 500 Leu/uL (Negative); Nitrite Negative (Negative); Protein, Urine (Dipstick) 50 mg/dL (Neg-Trace); Renal Epithelial 0-3 HPF (None Seen); Specific Gravity, Urine 1.049 (1.002-1.036); Squamous Epithelial 0-3 HPF (0-3); Urobilinogen 3 mg/dL (Less than 2); WBC/HPF Greater than 50 HPF (0-3); pH, Urine 5.5 (5.0-9.0)
[2022-03-24] MEDS ORDERED: HUM PROTHROMBIN CPLX(PCC)4FACT 2,000 UNIT in Admixture Fee 1 EACH IV SCH (20:30)
[2022-03-24] MEDS ORDERED: Acetaminophen 325 MG TAB PO PRN (22:01)
[2022-03-24] MEDS ORDERED: Electrolyte Replacement Protocol 1 EACH FS SCH (22:15)
[2022-03-24 22:31] LABS: Hemoglobin 8.5 g/dL (14.0-18.0)
[2022-03-25] MEDS ORDERED: Dextrose 5% in Water 1,000 ML IV PRN (01:38)
[2022-03-25] MEDS ORDERED: Dextrose 50% Abboject 50 ML SYRINGE SLOW IVP PRN (01:38)
[2022-03-25] MEDS ORDERED: HumaLOG 300 UNITS/3 ML VIAL SC PRN ×2 (01:38)
[2022-03-25] MEDS ORDERED: cefTRIAXone\\ROCEPHIN 1 GM VIAL ONE (03:06)
[2022-03-25 03:11] LABS: #Lymphocytes 1.1 thou/uL (1.20-3.40); #Monocytes 0.7 thou/uL (0.11-0.59); #Neutrophils 6.6 thou/uL (1.40-6.50); %Basophils 0.3 % (0.0-1.0); %Eosinophils 0.3 % (0.0-10.0); %Lymphocytes 12.7 % (21.0-51.0); %Monocytes 8.8 % (0.0-10.0); %Neutrophils 77.9 % (42.0-75.0); Hemoglobin 7.8 g/dL (14.0-18.0); Mean Corpuscular HGB CONC 34.2 g/dL (32.0-36.0); Mean Corpuscular Hemoglobin 33.1 pg (27.0-31.0); Mean Corpuscular Volume 96.9 fL (78.0-98.0); Mean Platelet Volume 8.3 fL (7.4-10.4); Platelet Count 220 thou/uL (130-400); RBC Distribution Width 14.7 % (11.5-14.5); Red Blood Cell (RBC) Count 2.34 mill/uL (4.70-6.10); White Blood Cell (WBC) Count 8.5 thou/uL (4.8-10.8)
[2022-03-25] MEDS: cefTRIAXone\\ROCEPHIN 1 GM in Sodium Chloride 0.9% 100 ML IVPB SCH (03:16)
[2022-03-25 03:37] LABS: Anion Gap 13 mmol/L (10-20); BUN (Urea Nitrogen) 14 mg/dL (8.4-25.7); Calc. Creatinine Clearance 0 mL/min (70-130); Calcium 7.3 mg/dL (7.8-10.44); Carbon Dioxide 25 mmol/L (23-31); Chloride 108 mmol/L (98-107); Estimated GFR 96; Glucose 104 mg/dL (83-110); Magnesium 1.9 mg/dL (1.6-2.6); Potassium 3.5 mmol/L (3.5-5.1); Sodium 142 mmol/L (136-145)
[2022-03-25] MEDS ORDERED: Furosemide 20 MG/2 ML VIAL SLOW IVP SCH ×2 (06:00→07:30)
[2022-03-25 06:53] VITALS: BMI 21.7
[2022-03-25] MEDS ORDERED: Magnesium 2 GM/50 ML(in water) 2 GM in Premix Bag 1 BAG IVPB SCH (08:00)
[2022-03-25] MEDS: Potassium Chloride 20 MEQ in Premix Bag 1 BAG IVPB SCH ×2 (10:57→13:32)
[2022-03-25 11:37] LABS: Hemoglobin 7.6 g/dL (14.0-18.0)
[2022-03-25] MEDS ORDERED: Potassium Chloride 20 MEQ in Premix Bag 1 BAG IVPB SCH (13:00)
[2022-03-25] MEDS: Furosemide 20 MG/2 ML VIAL SLOW IVP SCH (14:46)
[2022-03-25] MEDS ORDERED: guaiFENesin ER 600 MG TAB PO PRN (16:54)
[2022-03-25] MEDS ORDERED: Acetaminophen 325 MG TAB PO PRN (16:54)
[2022-03-25] MEDS ORDERED: ALPRAZolam 0.5 MG TAB PO PRN (18:59)
[2022-03-25] MEDS: Fluticasone Propionate Nasal Spray 16 gm Bottle NASAL SCH (21:23)
[2022-03-25] MEDS: Terazosin HCl 1 MG CAP PO SCH (21:24)
[2022-03-26] MEDS: cefTRIAXone\\ROCEPHIN 1 GM in Sodium Chloride 0.9% 100 ML IVPB SCH (01:57)
[2022-03-26] MEDS: Furosemide 20 MG/2 ML VIAL SLOW IVP SCH (05:10)
[2022-03-26 05:27] LABS: #Eosinphils 0.2 thou/uL (0.0-0.7); #Lymphocytes 1.1 thou/uL (1.20-3.40); #Monocytes 0.7 thou/uL (0.11-0.59); #Neutrophils 4.1 thou/uL (1.40-6.50); %Basophils 0.1 % (0.0-1.0); %Eosinophils 3.1 % (0.0-10.0); %Lymphocytes 18.7 % (21.0-51.0); Mean Corpuscular HGB CONC 33.5 g/dL (32.0-36.0); Mean Corpuscular Hemoglobin 32.7 pg (27.0-31.0); Mean Corpuscular Volume 97.8 fL (78.0-98.0); Mean Platelet Volume 7.8 fL (7.4-10.4); Platelet Count 204 thou/uL (130-400); RBC Distribution Width 14.9 % (11.5-14.5); Red Blood Cell (RBC) Count 2.13 mill/uL (4.70-6.10); White Blood Cell (WBC) Count 6.1 thou/uL (4.8-10.8)
[2022-03-26 05:50] LABS: Anion Gap 10 mmol/L (10-20); BUN (Urea Nitrogen) 13 mg/dL (8.4-25.7); Calc. Creatinine Clearance 100 mL/min (70-130); Calcium 7.2 mg/dL (7.8-10.44); Carbon Dioxide 29 mmol/L (23-31); Chloride 106 mmol/L (98-107); Estimated GFR 93; Glucose 97 mg/dL (83-110); Magnesium 1.8 mg/dL (1.6-2.6); Potassium 3.2 mmol/L (3.5-5.1); Sodium 142 mmol/L (136-145)
[2022-03-26] MEDS ORDERED: Potassium Chloride 20 MEQ TAB PO SCH (08:00)
[2022-03-26] MEDS ORDERED: Magnesium 2 GM/50 ML(in water) 2 GM in Premix Bag 1 BAG IVPB SCH (08:00)
[2022-03-26] MEDS ORDERED: Metoprolol Tartrate 50 MG TAB PO SCH (09:00)
[2022-03-26] MEDS: Cholecalciferol (Vitamin D3) 400 UNITS TAB PO SCH (09:16)
[2022-03-26] MEDS: Fluticasone Propionate Nasal Spray 16 gm Bottle NASAL SCH ×3 (09:16→21:22)
[2022-03-26] MEDS: Loratadine 10 MG TAB PO SCH (09:17)
[2022-03-26] MEDS: Polyethylene Glycol 3350 17 GM Packet PO SCH (09:18)
[2022-03-26] MEDS: Ondansetron PF 4 MG/2 ML Vial IVP PRN (13:38)
[2022-03-26 18:14] LABS: Hemoglobin 9.3 g/dL (14.0-18.0); Mean Corpuscular HGB CONC 34.3 g/dL (32.0-36.0); Mean Corpuscular Hemoglobin 33.9 pg (27.0-31.0); Mean Corpuscular Volume 98.8 fL (78.0-98.0); Mean Platelet Volume 7.7 fL (7.4-10.4); Platelet Count 245 thou/uL (130-400); RBC Distribution Width 14.6 % (11.5-14.5); Red Blood Cell (RBC) Count 2.75 mill/uL (4.70-6.10); White Blood Cell (WBC) Count 9.5 thou/uL (4.8-10.8)
[2022-03-26 20:20] LABS: Potassium 3.9 mmol/L (3.5-5.1)
[2022-03-26] MEDS: Terazosin HCl 1 MG CAP PO SCH (21:19)
[2022-03-27] MEDS: cefTRIAXone\\ROCEPHIN 1 GM in Sodium Chloride 0.9% 100 ML IVPB SCH (02:15)
[2022-03-27 05:42] LABS: #Eosinphils 0.2 thou/uL (0.0-0.7); #Lymphocytes 1.1 thou/uL (1.20-3.40); #Monocytes 0.8 thou/uL (0.11-0.59); #Neutrophils 4.7 thou/uL (1.40-6.50); %Basophils 0.7 % (0.0-1.0); %Eosinophils 2.5 % (0.0-10.0); %Lymphocytes 16.7 % (21.0-51.0); %Neutrophils 69.1 % (42.0-75.0); Hemoglobin 8.4 g/dL (14.0-18.0); Mean Corpuscular Hemoglobin 33.8 pg (27.0-31.0); Mean Corpuscular Volume 99.5 fL (78.0-98.0); Mean Platelet Volume 7.7 fL (7.4-10.4); Platelet Count 206 thou/uL (130-400); RBC Distribution Width 14.9 % (11.5-14.5); Red Blood Cell (RBC) Count 2.47 mill/uL (4.70-6.10); White Blood Cell (WBC) Count 6.9 thou/uL (4.8-10.8)
[2022-03-27 06:03] LABS: Anion Gap 9 mmol/L (10-20); BUN (Urea Nitrogen) 13 mg/dL (8.4-25.7); Calc. Creatinine Clearance 96 mL/min (70-130); Calcium 7.4 mg/dL (7.8-10.44); Carbon Dioxide 31 mmol/L (23-31); Chloride 106 mmol/L (98-107); Estimated GFR 92; Glucose 115 mg/dL (83-110); Potassium 4.2 mmol/L (3.5-5.1); Sodium 142 mmol/L (136-145)
[2022-03-27] MEDS: Cholecalciferol (Vitamin D3) 400 UNITS TAB PO SCH (12:24)
[2022-03-27] MEDS: Fluticasone Propionate Nasal Spray 16 gm Bottle NASAL SCH ×2 (12:24→22:30)
[2022-03-27] MEDS: Polyethylene Glycol 3350 17 GM Packet PO SCH (12:24)
[2022-03-27] MEDS: Loratadine 10 MG TAB PO SCH (12:25)
[2022-03-27 13:34] LABS: Hemoglobin 9.2 g/dL (14.0-18.0)
[2022-03-27] MEDS: Terazosin HCl 1 MG CAP PO SCH (22:31)
[2022-03-28] MEDS: cefTRIAXone\\ROCEPHIN 1 GM in Sodium Chloride 0.9% 100 ML IVPB SCH (03:05)
[2022-03-28 05:06] LABS: Hemoglobin 8.9 g/dL (14.0-18.0); Mean Corpuscular HGB CONC 33.4 g/dL (32.0-36.0); Mean Corpuscular Hemoglobin 33.7 pg (27.0-31.0); Mean Platelet Volume 7.5 fL (7.4-10.4); Platelet Count 228 thou/uL (130-400); RBC Distribution Width 15.6 % (11.5-14.5); Red Blood Cell (RBC) Count 2.63 mill/uL (4.70-6.10); White Blood Cell (WBC) Count 9.5 thou/uL (4.8-10.8)
[2022-03-28] MEDS: Fluticasone Propionate Nasal Spray 16 gm Bottle NASAL SCH ×3 (08:42→20:59)
[2022-03-28] MEDS ORDERED: Aspirin Chewable 81 MG TAB PO SCH (09:00)
[2022-03-28] MEDS: Cholecalciferol (Vitamin D3) 400 UNITS TAB PO SCH (09:15)
[2022-03-28] MEDS: Loratadine 10 MG TAB PO SCH (09:16)
[2022-03-28] MEDS: Polyethylene Glycol 3350 17 GM Packet PO SCH (09:17)
[2022-03-28] MEDS: Terazosin HCl 1 MG CAP PO SCH (20:59)
[2022-03-29] MEDS: cefTRIAXone\\ROCEPHIN 1 GM in Sodium Chloride 0.9% 100 ML IVPB SCH (02:51)
[2022-03-29] MEDS: Loratadine 10 MG TAB PO SCH (10:27)
[2022-03-29] MEDS: Fluticasone Propionate Nasal Spray 16 gm Bottle NASAL SCH ×3 (10:27→20:41)
[2022-03-29] MEDS: Cholecalciferol (Vitamin D3) 400 UNITS TAB PO SCH (10:28)
[2022-03-29] MEDS: Polyethylene Glycol 3350 17 GM Packet PO SCH (10:28)
[2022-03-29] MEDS: Calcium Carbonate 500 MG ChewTAB PO PRN (20:38)
[2022-03-29] MEDS: Terazosin HCl 1 MG CAP PO SCH (20:38)
[2022-03-29] MEDS: Ondansetron PF 4 MG/2 ML Vial IVP PRN (22:42)
[2022-03-30] MEDS: cefTRIAXone\\ROCEPHIN 1 GM in Sodium Chloride 0.9% 100 ML IVPB SCH (03:29)
[2022-03-30 05:38] LABS: Hemoglobin 8.9 g/dL (14.0-18.0); Mean Corpuscular Hemoglobin 33.7 pg (27.0-31.0); Mean Platelet Volume 7.3 fL (7.4-10.4); Platelet Count 228 thou/uL (130-400); RBC Distribution Width 16.5 % (11.5-14.5); Red Blood Cell (RBC) Count 2.64 mill/uL (4.70-6.10); White Blood Cell (WBC) Count 6.5 thou/uL (4.8-10.8)
[2022-03-30 05:59] LABS: Anion Gap 10 mmol/L (10-20); BUN (Urea Nitrogen) 11 mg/dL (8.4-25.7); Calc. Creatinine Clearance 114 mL/min (70-130); Calcium 7.7 mg/dL (7.8-10.44); Carbon Dioxide 27 mmol/L (23-31); Chloride 106 mmol/L (98-107); Estimated GFR 97; Glucose 91 mg/dL (83-110); Potassium 3.7 mmol/L (3.5-5.1); Sodium 139 mmol/L (136-145)
[2022-03-30] MEDS: Polyethylene Glycol 3350 17 GM Packet PO SCH (09:55)
[2022-03-30] MEDS: Cholecalciferol (Vitamin D3) 400 UNITS TAB PO SCH (09:55)
[2022-03-30] MEDS: Fluticasone Propionate Nasal Spray 16 gm Bottle NASAL SCH ×3 (09:55→21:10)
[2022-03-30] MEDS: Loratadine 10 MG TAB PO SCH (09:55)
[2022-03-30] MEDS: Calcium Carbonate 500 MG ChewTAB PO PRN (12:42)
[2022-03-30] MEDS: Terazosin HCl 1 MG CAP PO SCH (21:07)
[2022-03-31] MEDS: cefTRIAXone\\ROCEPHIN 1 GM in Sodium Chloride 0.9% 100 ML IVPB SCH (01:24)
[2022-03-31] MEDS ORDERED: Metoprolol Tartrate 5 MG/5 ML VIAL IVP PRN (06:04)
[2022-03-31] MEDS: Cholecalciferol (Vitamin D3) 400 UNITS TAB PO SCH (10:20)
[2022-03-31] MEDS: Polyethylene Glycol 3350 17 GM Packet PO SCH (10:20)
[2022-03-31] MEDS: Loratadine 10 MG TAB PO SCH (10:20)
[2022-03-31] MEDS: Fluticasone Propionate Nasal Spray 16 gm Bottle NASAL SCH (10:20)
[2022-03-31 12:09] VITALS: BP 132/88; TEMP 96.4
== END 2022-03-31 13:10 | DRG 813 ==
LOC: ERS 16:29 → ERHOLD 20:05 → INTOOBSV 20:05 → NEURO 03-25 06:33 → OBSVTOIN 03-26 07:22
PROVIDERS: ADMIT Internal Medicine; ATTEND Internal Medicine
PROC: 30283B1 Transfusion of Nonautologous 4-Factor Prothrombin Complex Concentrate into Vein, Percutaneous Approach (ICD-10-PCS; 2022-03-24)
PROC: 30233N1 Transfusion of Nonautologous Red Blood Cells into Peripheral Vein, Percutaneous Approach (ICD-10-PCS; principal; 2022-03-26)
DX: D68.32 Hemorrhagic disorder due to extrinsic circulating anticoagulants (principal); D62 Acute posthemorrhagic anemia; N39.0 Urinary tract infection, site not specified; I48.11 Longstanding persistent atrial fibrillation; I50.32 Chronic diastolic (congestive) heart failure; E11.9 Type 2 diabetes mellitus without complications; N40.0 Benign prostatic hyperplasia without lower urinary tract symptoms; E87.6 Hypokalemia; E83.42 Hypomagnesemia; F03.90 Unspecified dementia, unspecified severity, without behavioral disturbance, psychotic disturbance, mood disturbance, and anxiety; K21.9 Gastro-esophageal reflux disease without esophagitis; B96.20 Unspecified Escherichia coli [E. coli] as the cause of diseases classified elsewhere; R13.12 Dysphagia, oropharyngeal phase; Z20.822 Contact with and (suspected) exposure to COVID-19; Z51.5 Encounter for palliative care; Z66 Do not resuscitate; Z79.01 Long term (current) use of anticoagulants; Z88.8 Allergy status to other drugs, medicaments and biological substances; Z79.899 Other long term (current) drug therapy; Z90.49 Acquired absence of other specified parts of digestive tract; Z86.718 Personal history of other venous thrombosis and embolism
CPT/HCPCS: 36415; 36416; 36430; 51701; 70450; 71260; 74177; 80048; 80053; 81003; 81015; 82550; 83690; 83735; 83880; 85025; 85027; 85610; 85730; 86850; 86900; 86901; 87077; 87086; 87186; 93005; 93306; 94760; 96365; 96366; 96367; 96375; 96376; G0378; J0696; J1940; J2405; J3475; J3480; J3490; J7030; P9016; Q9967; U0003; U0005